=== PATIENT | female | born 1950 | race Caucasian/White ===

== ENCOUNTER 2018-01-10 17:32 | Inpatient (IN) | payer OTHER ==
--- OUTSIDE RECORDS SUMMARY | 2018-01-10 17:34 | XMS REPORT | Clinical Summary ---
:1950 Author Organization [facility] Address [address] [place] [address] Care Team Providers Name Role Phone Eulogio Hastings MD Primary Care Provider Allergies Active Allergy Reactions Severity Noted Date Comments Amlodipine Anaphylaxis High 08/14/2017 Yellow Dye Itching 08/14/2017 FACIAL Current Medications Prescription Sig. Disp. Refills Start Date End Date Status insulin detemir Inject 16 Units Active (LEVEMIR) 100 unit/mL under the skin 2 injection (two) times a day. sevelamer (RENVELA) Take 800 mg by Active 800 mg tablet mouth 3 (three) times a day with meals. pantoprazole Take 40 mg by Active (PROTONIX) 40 MG EC mouth daily. tablet FOLIC ACID/VIT B Take by mouth Active COMPLEX AND C daily. (SUZY-MARIELLE ORAL) gabapentin Take 100 mg by Active (NEURONTIN) 100 mg mouth nightly. capsule traZODone (DESYREL) Take 50 mg by Active 50 MG tablet mouth nightly. acetaminophen-codeine Take 1 tablet by 30 tablet 0 08/14/2017 08/21/2017 (TYLENOL WITH CODEINE mouth every 4 #3) 300-30 mg per (four) hours as tablet needed for moderate pain for up to 7 days. Active Problems Not on file Encounters Date Type Specialty Care Team Description 08/14/2017 Hospital Encounter General Surgery Tika Jett MD 08/14/2017 Anesthesia Event General Surgery Jade Shankar CRNA 08/14/2017 Procedure Pass General Surgery 08/14/2017 Surgery General Surgery Tika Jett LEFT UPPER EXTREMITY BLUM MD FISTULA OPEN THROMBECTOMY, FISTULAGRAM, BALLOON ANGIOPLASTY, INSERTION ENDOVASCULAR STENT TO FISTULA after 01/09/2017 Social History Tobacco Use Types Packs/Day Years Used Date Never Smoker Smokeless Tobacco: Never Used Alcohol Use Drinks/Week oz/Week Comments Yes social Sex Assigned at Date Recorded Not on file Last Filed Vital Signs Vital Sign Reading Time Taken Blood Pressure 136/67 08/14/2017 7:30 PM EPIC ANESTHESIA ANALYST Pulse 79 08/14/2017 7:30 PM EPIC ANESTHESIA ANALYST Temperature 36.1 C (97 F) 08/14/2017 7:30 PM EPIC ANESTHESIA ANALYST Respiratory Rate 11 08/14/2017 7:30 PM EPIC ANESTHESIA ANALYST Oxygen Saturation 99% 08/14/2017 7:30 PM EPIC ANESTHESIA ANALYST Inhaled Oxygen Concentration - - Weight 71.7 kg (158 lb 1.1 oz) 08/14/2017 10:27 AM EPIC ANESTHESIA ANALYST Height 157.5 cm (5' 2") 08/14/2017 10:27 AM EPIC ANESTHESIA ANALYST Body Mass Index 28.91 08/14/2017 10:27 AM EPIC ANESTHESIA ANALYST Plan of Treatment Health Maintenance Due Date Last Done Comments CERVICAL CANCER SCREENING 02/19/1973 BREAST CANCER SCREENING 02/19/2002 COLON CANCER SCREENING 02/19/2002 SHINGRIX VACCINE (#1) 02/19/2002 ZOSTER VACCINE 2012 PNEUMOCOCCAL POLYSACCHARIDE VACCINE AGE 65 AND OVER 02/19/2017 PNEUMOCOCCAL-13 02/19/2017 INFLUENZA VACCINE 02/28/2018 Implants Implanted Type Area Fine Grade Bulldozer Operator Device Expiration Model / Identifier Date Serial / Lot Catheter Emboltmy Fgrty Otw Thru-Lmn 0.035in 5.5fr 40cm - [id number] Surgical N/A: N/A VALENTIN 09/07/2019 [id number] / Implanted: 08/14/2017 (Quantity not on file) Implants; LIFESCIENCES / Expanders; [id number] Extenders; Surgical Wires Catheter In Tube Conversion Technician Solway 75cm 8x80mm H-Pres - [id number] Surgical N/A: N/A BOSTON 05/29/2020 [id number] / Implanted: 08/14/2017 (Quantity not on file) Implants; SCIENTIFIC ROBER / Expanders; [id number] Extenders; Surgical Wires Stent Endprths Viabahn [id number] 8mm Heprn Bioactv Surf - [id number] - [id number] Surgical Left: W L GORE 01/12/2020 [id number] / Implanted: Qty: 1 on 08/14/2017 by Tika Jett MD Stents Arm, [id number] / Upper [id number] Stent Endprths Viabahn [id number] 8mm Heprn Bioactv Surf - [id number] Surgical Left: W L GORE 12/08/2019 [id number] / Implanted: 08/14/2017 (Quantity not on file) Stents Arm, [id number] / Upper [id number] Procedures Procedure Name Priority Date/Time Associated Diagnosis Comments NJ AN PERIPHERAL BLOCK Routine 08/14/2017 5:37 PM PROCEDURE FOR PAIN EPIC ANESTHESIA ANALYST Procedure Note - Gal Palacios MD - 08/14/2017 5:36 PM EPIC ANESTHESIA ANALYST Peripheral Block Performed by: GAL PALACIOS Authorized by: GAL PALACIOS Patient Location: Pre-op Start Time: 08/14/2017 5:15 PM End Time: 08/14/2017 5:25 PM Reason for Block: post-op pain management, procedure for pain Staff: Anesthesiologist: GAL PALACIOS Performed by: Anesthesiologist Preprocedure: patient identified, IV checked, site and side verified, risks and benefits discussed, procedure verified, surgical consent complete, patient position confirmed, monitors and equipment checked, pre-op evaluation complete and site marked Time Out Performed: 08/14/2017 5:15 PM Peripheral Nerve Block: Patient Position: Supine Prep: patient draped and DuraPrep Monitoring: Continuous pulse oximetry, blood pressure monitoring and heart rate Block Type: Supraclavicular Laterality: Left Injection Technique: Single injection Procedures: ultrasound guided Local Infiltration (See MAR for details): Ropivacaine Needle: Needle Type: Pajunk Needle Gauge: 21 G Needle Length: 10 cm Assessment: Injection Assessment: Visualized needle/local anesthetic surrounding nerve , intermittent aspiration during local anesthetic administration, no symptoms of intraneural/intravenous injection, visualized pertinent vascular structures and nerves and needle tip visualized at all times during injection of medication Paresthesia Pain: Immediately resolved Heart Rate Change: No Slow Fractionated Injection: Yes Block outcome: No apparent complications, patient comfortable and patient tolerated procedure well NJ AN PERIPHERAL BLOCK POST-OP PAIN Routine 08/14/2017 5:37 PM EPIC ANESTHESIA ANALYST Procedure Note - Gal Palacios MD - 08/14/2017 5:36 PM EPIC ANESTHESIA ANALYST Peripheral Block Performed by: GAL PALACIOS Authorized by: GAL PALACIOS Patient Location: Pre-op Start Time: 08/14/2017 5:15 PM End Time: 08/14/2017 5:25 PM Reason for Block: post-op pain management, procedure for pain Staff: Anesthesiologist: GAL PALACIOS Performed by: Anesthesiologist Preprocedure: patient identified, IV checked, site and side verified, risks and benefits discussed, procedure verified, surgical consent complete, patient position confirmed, monitors and equipment checked, pre-op evaluation complete and site marked Time Out Performed: 08/14/2017 5:15 PM Peripheral Nerve Block: Patient Position: Supine Prep: patient draped and DuraPrep Monitoring: Continuous pulse oximetry, blood pressure monitoring and heart rate Block Type: Supraclavicular Laterality: Left Injection Technique: Single injection Procedures: ultrasound guided Local Infiltration (See MAR for details): Ropivacaine Needle: Needle Type: Pajunk Needle Gauge: 21 G Needle Length: 10 cm Assessment: Injection Assessment: Visualized needle/local anesthetic surrounding nerve , intermittent aspiration during local anesthetic administration, no symptoms of intraneural/intravenous injection, visualized pertinent vascular structures and nerves and needle tip visualized at all times during injection of medication Paresthesia Pain: Immediately resolved Heart Rate Change: No Slow Fractionated Injection: Yes Block outcome: No apparent complications, patient comfortable and patient tolerated procedure well after 01/09/2017 Results POC glucose (08/14/2017 7:11 PM)Only the most recent of2 resultswithin the time period is included. Component Value Ref Range POC glucose 88 65 - 99 mg/dL Comment: Meter ID: [id number] Blood Tester Fowl: Elder Stapleton Specimen Performing Laboratory [facility] DEPARTMENT OF PATHOLOGY AND GENOMIC MEDICINE [address] [place] [address] OR [place] > I Hour (08/14/2017 7:09 PM) Specimen Performing Laboratory [facility] [address] [place] [address] Narrative EXAMINATION:OR FL 1 HOUR COMPARISON:None IMPRESSION: Fluoroscopy assisted procedure was performed by the clinical service, and 5 fluoroscopic spot images are acquired. Total fluoroscopy time was 346 seconds. Please see procedural report for details. [facility]-[id number] Procedure Note Interface, Radiology Results Incoming - 08/14/2017 7:37 PM EPIC ANESTHESIA ANALYST EXAMINATION: OR FL 1 HOUR COMPARISON: None IMPRESSION: Fluoroscopy assisted procedure was performed by the clinical service, and 5 fluoroscopic spot images are acquired. Total fluoroscopy time was 346 seconds. Please see procedural report for details. [facility]-[id number] POC panel 4 (08/14/2017 10:47 AM) Component Value Ref Range POC sodium 141 135 - 148 meq/L POC potassium 4.6 3.5 - 5.0 meq/L POC hematocrit 38 37 - 47 % POC glucose 111 (H) 65 - 99 mg/dL POC hemoglobin 12.9 12.0 - 16.0 g/dL Specimen Performing Laboratory Blood [facility] DEPARTMENT OF PATHOLOGY AND GENOMIC MEDICINE [address] [place] [address] ECG 12 lead (08/14/2017 10:24 AM) Component Value Ref Range Ventricular rate 80 Atrial rate 80 NJ interval 216 QRSD interval 82 QT interval 400 QTC interval 461 P axis 1 59 QRS axis 1 53 T wave axis 64 EKG impression Sinus rhythm with 1st degree AV block-Otherwise normal ECG-No previous ECGs available- Specimen Performing Laboratory [facility] MUSE [address] [place] [address] XR Chest 1 Vw Portable (08/14/2017 10:17 AM) Specimen Performing Laboratory [facility] [address] [place] [address] Narrative EXAMINATION:XR CHEST 1 VW PORTABLE CLINICAL HISTORY:pre op COMPARISON:None. IMPRESSION: Heart is slightly enlarged Scarring in the left upper lobe Support lines are good position No evidence of pneumothorax Degenerative changes are present throughout the bony structures without evidence of a suspicious focal lesion. [facility]-[id number] Procedure Note Interface, Radiology Results Incoming - 08/14/2017 10:23 AM EPIC ANESTHESIA ANALYST EXAMINATION: XR CHEST 1 VW PORTABLE CLINICAL HISTORY: pre op COMPARISON: None. IMPRESSION: Heart is slightly enlarged Scarring in the left upper lobe Support lines are good position No evidence of pneumothorax Degenerative changes are present throughout the bony structures without evidence of a suspicious focal lesion. [facility]-[id number] Estimated GFR (08/14/2017 9:58 AM) Component Value Ref Range GFR Non Af Amer 5 (A) mL/min/1.73 m2 GFR Af Amer 6 (A) mL/min/1.73 m2 Comment: Chronic kidney disease: <60 mL/min/1.73m2 Kidney failure: <15 mL/min/1.73m2 The estimated GFR is calculated from the IDMS-traceable Modification of Diet in Renal Disease Equation. The accuracy of the calculation is poor when the creatinine is normal. Calculated values >90 mL/min/1.73m2 are not reported. This equation has not been validated in children (<18 years), women, the elderly (>70 years), or ethnic groups other than Caucasians and Americans. Specimen Performing Laboratory Plasma specimen [facility] DEPARTMENT OF PATHOLOGY AND [address] [address] Partial thromboplastin time, activated (08/14/2017 9:58 AM) Component Value Ref Range PTT 33.4 23.0 - 36.0 sec Comment: PTT therapeutic range for unfractionated heparin is 61.0-112.0 seconds which corresponds to Anti-Xa 0.3-0.7 U/ml. Specimen Performing Laboratory Blood [facility] [address] [address] Prothrombin time with INR (08/14/2017 9:58 AM) Component Value Ref Range Prothrombin time 12.9 12.0 - 15.0 sec INR 1.0 Comment: The International Normalized Ratio (INR) is a therapeutic monitoring tool for patients who are stable on oral anticoagulant therapy. An INR of 2.0-3.0 is suggested for deep vein thrombosis/pulmonary embolism. Specimen Performing Laboratory Blood [facility] PATHOLOGY AND [address] [address] CBC hemogram (08/14/2017 9:58 AM) Component Value Ref Range WBC 9.7 4.5 - 11.0 k/uL RBC 3.42 (L) 4.20 - 5.50 m/uL HGB 11.8 (L) 12.0 - 16.0 g/dL HCT 34.4 (L) 37.0 - 47.0 % MCV 100.6 (H) 82.0 - 100.0 fL MCH 34.5 (H) 27.0 - 34.0 pg MCHC 34.3 31.0 - 37.0 g/dL RDW - SD 47.8 37.0 - 55.0 fL MPV 11.8 (H) 6.9 - 11.0 fL Platelet count 235 150 - 400 K/uL Nucleated RBC 0.00 /100 WBC Specimen Performing Laboratory Blood [facility] DEPARTMENT OF PATHOLOGY AND GENOMIC MEDICINE [address] [place] [address] Type and screen (08/14/2017 9:58 AM) Component Value Ref Range ABO grouping O Rh type POS Antibody screen (gel) NEG Specimen Performing Laboratory Blood [facility] DEPARTMENT OF PATHOLOGY AND GENOMIC MEDICINE [address] [place] [address] Basic metabolic panel (08/14/2017 9:58 AM) Component Value Ref Range Sodium 141 135 - 148 mEq/L Potassium 4.8Comment: Specimen is slightly hemolyzed. Interpret 3.5 - 5.0 mEq/L results accordingly. Chloride 98 98 - 112 mEq/L CO2 24 24 - 31 mEq/L Anion gap 19 (H) 7 - 15 mEq/L Comment: Starting from October , anion gap calculation no longer incorporates potassium. Please note the change. BUN 40 (H) 8 - 23 mg/dL Creatinine 7.6 (H) 0.5 - 0.9 mg/dL Glucose 116 (H) 65 - 99 mg/dL Calcium 10.5 (H) 8.8 - 10.2 mg/dL Specimen Performing Laboratory Plasma specimen [facility] DEPARTMENT OF PATHOLOGY AND GENOMIC MEDICINE [address] [place] [address] after 01/09/2017 Insurance Payer Benefit Plan / Group Subscriber ID Type Phone Address MEDICARE MEDICARE PART A AND B xxxxxxxxxx Medicare [facility] xxxxxxxxxx Commercial INSURANCE INSURANCE Home: [address] [phone] [address]
[2018-01-10 19:40] LABS: Absolute Lymphocytes (CBC) 1.5 K/uL (0.7-4.9); Absolute Monocytes 0.7 K/uL (0.1-1.3); Absolute Neutrophil 8.7 K/uL (1.8-8.0); Basophils % 0.5 % (0-1.3); Hematocrit 33.7 % (36.0-45.0); Lymphocytes % 13.3 % (15.3-44.8); MCV 99.5 fL (80-100); MPV 9.7 fL (7.6-11.3); Monocytes % 6.7 % (3.3-12.3); RBC Red Blood Cell Count 3.39 M/uL (3.86-4.86)
[2018-01-10 19:51] LABS: Bicarbonate 29 mEq/L (21-31); Glucose Level 122 mg/dL (65-120); Potassium 4.4 mEq/L (3.6-5.0); Sodium Level 137 mEq/L (135-145)
[2018-01-10 19:59] LABS: ALT/SGPT 13 IU/L (10-60); AST/SGOT 14 IU/L (10-42); Albumin 3.6 g/dL (3.2-5.5); Alkaline Phosphatase 111 IU/L (42-121); BUN Blood Urea Nitrogen 49 mg/dL (6-20); Bilirubin Direct < 0.1 mg/dL (0-0.2); Bilirubin Total 0.4 mg/dL (0.3-1.2); Creatine Phosphokinase 26 IU/L (22-269); Protein, Total 7.6 g/dL (6.0-8.3)
[2018-01-10 20:00] LABS: CKMB Creatine Kinase MB 1.1 ng/ml (0.3-4.0)
--- NOTE | 2018-01-10 20:06 | RAD REPORT ---
EXAM DESCRIPTION: RAD - Foot Right 2 View - 01/10/2018 7:00 pm CLINICAL HISTORY: Foot pain, plantar wound, possible osteomyelitis COMPARISON: None. FINDINGS: No fracture, dislocation or periosteal reaction. No acute or destructive bone process. IP degenerative change is minimal. Arterial calcifications are present. In the area of interest there is no air or foreign body. IMPRESSION: No air or foreign body in the soft tissues. No acute or destructive bone process.
[2018-01-10 20:14] LABS: Protime INR 1.01
--- NOTE | 2018-01-10 20:46 | ER ---
Nurse's Notes [facility] Name: Laurel Ames Age: 67 yrs Sex: Female : 1950 Arrival Date: 01/10/2018 Time: 17:35 Bed 20 Private MD: Eulogio Sandoval R Diagnosis: Open wound of foot-Right;Cellulitis of right lower limb Presentation: 01/10 17:47 Presenting complaint: Patient states: Wound to bottom of right foot for 2 weeks, sent aj by Dr To for admission to wound healing. Transition of care: patient was not received from another setting of care. Onset of symptoms was December 29, 2017. Risk Assessment: Do you want to hurt yourself or someone else? Patient reports no desire to harm self or others. Care prior to arrival: None. 17:47 Method Of Arrival: Ambulatory aj 17:47 Acuity: COMFORT 3 aj 18:58 Initial Sepsis Screen: Does the patient meet any 2 criteria? No. Patient's initial rk2 sepsis screen is negative. Does the patient have a suspected source of infection? Yes: No. Patient's initial sepsis screen is negative. Triage Assessment: 17:50 General: Appears in no apparent distress. comfortable, Behavior is calm, cooperative, aj appropriate for age. Pain: Complains of pain in right foot. Neuro: Level of Consciousness is awake, alert, obeys commands, Oriented to person, place, time, situation, Appropriate for age. Respiratory: Airway is patent Respiratory effort is even, unlabored, Respiratory pattern is regular, symmetrical. Derm: Skin is intact, is healthy with good turgor, Skin is pink, warm \T\ dry. normal, Wound noted right foot. Historical: - Allergies: 17:50 Norvasc; aj 17:50 yellow dye; aj 17:50 Flourisine; aj - Home Meds: 17:50 Levemir FlexTouch 100 unit/mL (3 mL) subcutaneous inpn [Active]; Renvela 800 mg oral aj tab 1 tab 3 times per day [Active]; pantoprazole 40 mg oral TbEC 1 tab once daily [Active]; gabapentin 100 mg oral cap nightly [Active]; trazodone 50 mg Oral tab nightly [Active]; Bactrim oral oral [Active]; - PMHx: 17:50 CHF; Diabetes - IDDM; Dialysis; ESRD; aj - PSHx: 17:50 Tubal ligation; dialyis access surgery; aj - Immunization history:: Adult Immunizations up to date. - Social history:: Smoking status: Patient/guardian denies using tobacco. - Ebola Screening: : Patient negative for fever greater than or equal to 101.5 degrees Fahrenheit, and additional compatible Ebola Virus Disease symptoms Patient denies exposure to infectious person Patient denies travel to an Ebola-affected area in the 21 days before illness onset No symptoms or risks identified at this time. Screenin:30 Abuse screen: Denies threats or abuse. rk2 18:30 Nutritional screening: No deficits noted. Tuberculosis screening: No symptoms or risk rk2 factors identified. Fall Risk None identified. Assessment: 18:30 General: Appears in no apparent distress. well developed, well nourished. rk2 18:30 Neuro: Level of Consciousness is alert, obeys commands, Oriented to person, place, rk2 time, situation. Respiratory: Airway is patent Respiratory effort is even, unlabored, Respiratory pattern is regular, symmetrical. Derm: Skin is pink, warm \T\ dry. Injury Description: Wound noted to bottom of right foot... no drainage noted. 19:13 Reassessment: Patient appears in no apparent distress at this time. Patient and/or jd3 family updated on plan of care and expected duration. Pain level reassessed. Patient is alert, oriented x 3, equal unlabored respirations, skin warm/dry/pink. Patient denies pain at this time. General: Appears in no apparent distress. Behavior is cooperative, appropriate for age. Pain: Denies pain. Neuro: Level of Consciousness is awake, alert, obeys commands, Oriented to person, place, time, situation. Respiratory: Airway is patent Respiratory effort is even, unlabored, Respiratory pattern is regular, symmetrical, Breath sounds are clear bilaterally. Derm: Skin is intact, Skin is dry, Skin is normal, Skin temperature is warm Wound noted ball of right foot Wound is open, silver dollar in size, and clean. Musculoskeletal: Circulation, motion, and sensation intact. Range of motion: intact in all extremities. 20:58 Reassessment: Patient appears in no apparent distress at this time. Patient and/or jd3 family updated on plan of care and expected duration. Pain level reassessed. Patient is alert, oriented x 3, equal unlabored respirations, skin warm/dry/pink. Patient denies pain at this time. 22:18 Reassessment: Patient appears in no apparent distress at this time. Patient and/or jd3 family updated on plan of care and expected duration. Pain level reassessed. Patient is alert, oriented x 3, equal unlabored respirations, skin warm/dry/pink. pt reported understanding of need for admission. Patient denies pain at this time. Vital Signs: 17:50 BP 127 / 45; Pulse 99; Resp 17; Temp 98.1; Pulse Ox 96% on R/A; Weight 71.4 kg; Height aj 5 ft. 2 in. (157.48 cm) (R); 19:16 BP 163 / 72; Pulse 88; Resp 16 S; Pulse Ox 98% on R/A; Pain 0/10; jd3 20:56 Pulse 87; Resp 17 S; Pulse Ox 98% on R/A; Pain 0/10; jd3 22:17 BP 142 / 97; Pulse 86; Resp 17 S; Pulse Ox 99% on R/A; Pain 0/10; jd3 17:50 Body Mass Index 28.79 (71.40 kg, 157.48 cm) aj ED Course: 17:35 Patient arrived in ED. mr 17:35 Eulogio Sandoval MD is Private Physician. mr 17:48 Triage completed. aj 17:50 Arm band placed on left wrist. Patient placed in an exam room. aj 17:53 Elizabeth Pedersen, RN is Primary Nurse. rk2 18:01 Chirag Stafford PA is PHCP. cp 18:01 Selwyn Gallego MD is Attending Physician. cp 18:02 Chirag Hinds MD is Attending Physician. cp 18:30 Patient has correct armband on for positive identification. Bed in low position. Call rk2 light in reach. 18:53 XRAY Foot RIGHT 2 View Sent. rk2 18:59 X-ray completed. Portable x-ray completed in exam room. Patient tolerated procedure bb2 well. 19:00 XRAY Foot RIGHT 2 View In Process Unspecified. EDMS 19:20 Initial lab(s) drawn, by me, sent to lab. First set of blood cultures drawn by me. cc Inserted saline lock: 22 gauge in right antecubital area, using aseptic technique. Blood collected. 19:42 Gerson Barragan, RN is Primary Nurse. jd3 19:45 Wound culture swab sent to lab. cc 19:59 doppler to rt foot. Pedal pulse present at 85 bpm. cc 20:10 EKG done, by ED staff, reviewed by Chirag WILKES. cc 20:15 Second set of blood cultures drawn by me. cc 20:44 Eulogio Sandoval MD is Hospitalizing Provider. cp 22:21 No provider procedures requiring assistance completed. Patient admitted, IV remains in jd3 place. Administered Medications: 21:16 Drug: LevaQUIN 250 mg Volume: 50 ml; Route: IVPB; Infused Over: 60 mins; Site: right jd3 antecubital; 22:16 Follow up: Response: No adverse reaction; IV Status: Completed infusion jd3 22:15 Drug: vancoMYCIN 1 grams Route: IVPB; Infused Over: 2 hrs; Site: right antecubital; jd3 22:16 Follow up: Response: No adverse reaction; IV Status: Infusion continued upon admission jd3 Outcome: 20:45 Decision to Hospitalize by Provider. cp 22:22 Admitted to Med/surg accompanied by tech, via wheelchair, room 212, with chart, Report jd3 called to Violette SHEPPARD 22:22 Condition: stable 22:22 Instructed on the need for admit, Demonstrated understanding of instructions. 22:33 Patient left the ED. jd3 Signatures: Dispatcher [employer] EDMS Natividad Reynolds RN RN aj Rivera, Maria mr León, Marine cc Chirag Stafford PA PA cp Gerson Barragan RN RN jd3 Bock, Brittany bb2 Kidder, Rhonda, RN RN rk2 Corrections: (The following items were deleted from the chart) 20:18 19:59 doppler to rt foot. Pedal pulse present and equal at 85 bpm cc cc 22:23 22:18 Reassessment: Patient appears in no apparent distress at this time. Patient jd3 and/or family updated on plan of care and expected duration. Pain level reassessed. Patient is alert, oriented x 3, equal unlabored respirations, skin warm/dry/pink. Patient denies pain at this time. jd3
--- NOTE | 2018-01-10 20:46 | EDPHYS ---
Physician Documentation [facility] Name: Laurel Ames Age: 67 yrs Sex: Female : 1950 Arrival Date: 01/10/2018 Time: 17:35 Bed 20 Private MD: Eulogio Sandoval R ED Physician Chirag iHnds HPI: 01/10 18:45 This 67 yrs old Female presents to ER via Ambulatory with complaints of Wound cp Check. 18:45 The patient presents with pressure wound. The complaints affect the plantar surface of cp right foot. 18:45 Context: resulted from an unknown cause, the patient can fully bear weight, started as cp blister that has not healed. Onset: The symptoms/episode began/occurred 2 week(s) ago. Associated signs and symptoms: Pertinent negatives: calf tenderness, fever. Started on oral Bactrim approximately 1 week ago and was seen by podiatry today and referred to ED to be admitted for wound care evaluation. Historical: - Allergies: 17:50 Norvasc; aj 17:50 yellow dye; aj 17:50 Flourisine; aj - Home Meds: 17:50 Levemir FlexTouch 100 unit/mL (3 mL) subcutaneous inpn [Active]; Renvela 800 mg oral aj tab 1 tab 3 times per day [Active]; pantoprazole 40 mg oral TbEC 1 tab once daily [Active]; gabapentin 100 mg oral cap nightly [Active]; trazodone 50 mg Oral tab nightly [Active]; Bactrim oral oral [Active]; - PMHx: 17:50 CHF; Diabetes - IDDM; Dialysis; ESRD; aj - PSHx: 17:50 Tubal ligation; dialyis access surgery; aj - Immunization history:: Adult Immunizations up to date. - Social history:: Smoking status: Patient/guardian denies using tobacco. - Ebola Screening: : Patient negative for fever greater than or equal to 101.5 degrees Fahrenheit, and additional compatible Ebola Virus Disease symptoms Patient denies exposure to infectious person Patient denies travel to an Ebola-affected area in the 21 days before illness onset No symptoms or risks identified at this time. ROS: 18:50 Constitutional: Negative for body aches, chills, fever, poor PO intake. cp 18:50 Eyes: Negative for injury, pain, redness, and discharge. cp 18:50 ENT: Negative for drainage from ear(s), ear pain, sore throat, difficulty swallowing, difficulty handling secretions. 18:50 Cardiovascular: Negative for chest pain, edema. 18:50 Respiratory: Negative for cough, shortness of breath, wheezing. 18:50 Abdomen/GI: Negative for abdominal pain, nausea, vomiting, and diarrhea, black/tarry stool, rectal bleeding. 18:50 Back: Negative for pain at rest, pain with movement, radiated pain. 18:50 : Negative for urinary symptoms. 18:50 Skin: Positive for cellulitis, ulceration, of the plantar surface of right foot. 18:50 Neuro: Negative for altered mental status, headache, weakness. 18:50 All other systems are negative. Exam: 18:58 Constitutional: The patient appears in no acute distress, alert, awake, non-toxic, well cp developed, well nourished, frail. 18:58 Head/Face: Normocephalic, atraumatic. cp 18:58 Eyes: Periorbital structures: appear normal, Pupils: equal, round, and reactive to light and accomodation, Extraocular movements: intact throughout, Conjunctiva: normal, no exudate, no injection, Sclera: no appreciated abnormality, Lids and lashes: appear normal, bilaterally. 18:58 ENT: External ear(s): are unremarkable, Ear canal(s): are normal, clear, TM's: bulging, is not appreciated, bilaterally, dullness, bilaterally, erythema, is not appreciated, bilaterally, Nose: is normal, Mouth: Lips: moist, Oral mucosa: moist, Posterior pharynx: is normal, airway is patent, no erythema, no exudate, Voice: is normal. 18:58 Neck: ROM/movement: is normal, is supple, without pain, no range of motions limitations, no nuchal rigidity. 18:58 Chest/axilla: Inspection: normal, Palpation: is normal, no crepitus, no tenderness. 18:58 Cardiovascular: Rate: normal, Rhythm: regular, Edema: is not appreciated, JVD: is not appreciated. 18:58 Respiratory: the patient does not display signs of respiratory distress, Respirations: normal, no use of accessory muscles, no retractions, no splinting, no tachypnea, labored breathing, is not present, Breath sounds: decreased breath sounds, are not appreciated, wheezing: is not appreciated. 18:58 Abdomen/GI: Inspection: abdomen appears normal, Bowel sounds: active, all quadrants, Palpation: abdomen is soft and non-tender, in all quadrants, rebound tenderness, is not appreciated, voluntary guarding, is not appreciated, involuntary guarding, is not appreciated. 18:58 Back: pain, is absent, ROM is normal. 18:58 Musculoskeletal/extremity: Exam is negative for deformity, injury, Pulses: noted to be 1+ in the right dorsalis pedis artery and left dorsalis pedis artery, decreased sensation. 18:58 Skin: cellulitis, that is moderate, irregular, on the right foot, noted large plantar pressure ulcer ball right foot. 20:15 ECG was reviewed by the Attending Physician. cp Vital Signs: 17:50 BP 127 / 45; Pulse 99; Resp 17; Temp 98.1; Pulse Ox 96% on R/A; Weight 71.4 kg; Height aj 5 ft. 2 in. (157.48 cm) (R); 19:16 BP 163 / 72; Pulse 88; Resp 16 S; Pulse Ox 98% on R/A; Pain 0/10; jd3 20:56 Pulse 87; Resp 17 S; Pulse Ox 98% on R/A; Pain 0/10; jd3 22:17 BP 142 / 97; Pulse 86; Resp 17 S; Pulse Ox 99% on R/A; Pain 0/10; jd3 17:50 Body Mass Index 28.79 (71.40 kg, 157.48 cm) aj MDM: 18:01 Patient medically screened. cp 20:13 Data reviewed: vital signs, nurses notes, lab test result(s), EKG, radiologic studies, cp plain films. 20:13 Differential diagnosis: cellulitis, abscess, osteomyelitis, sepsis. Test cp interpretation: by ED physician or midlevel provider: ECG, plain radiologic studies. 20:15 Physician consultation: Jude Julian MD was called at 20:15, left message with cp on-call service. 20:29 Physician consultation: Jude Julian MD was contacted at 20:29, regarding consult, cp patient's condition, wants patient to be given Vancomycin 1 gram and Levaquin 250 mg. 20:40 Physician consultation: Eulogio Sandoval MD was called at 20:41, was contacted at 20:41, cp regarding admission, to the medical/surgical unit. 06 18:42 Order name: Basic Metabolic Panel; Complete Time: 20:10 06/13 20:11 Interpretation: Normal except: CL 97; GLUC 122; BUN 49; CRE 7.07; GFR 6. cp / 18:42 Order name: Blood Culture Adult (2) cp 06/ 18:42 Order name: C-Reactive Protein; Complete Time: 20:10 cp / 18:42 Order name: CBC with Diff; Complete Time: 20:49 cp 06/13 20:49 Interpretation: Normal except: WBC 11.1; RBC 3.39; HGB 11.2; HCT 33.7. cp 06/ 18:42 Order name: Ckmb; Complete Time: 20:10 cp / 18:42 Order name: CPK; Complete Time: 20:10 / 18:42 Order name: Lactate; Complete Time: 20:10 / 18:42 Order name: LFT's; Complete Time: 20:10 01/10 18:42 Order name: Procalcitonin; Complete Time: 20:28 cp /13 20:29 Interpretation: Procalcitonin 2.01; Reviewed. cp 06/ 18:42 Order name: Protime (+inr); Complete Time: 20:49 cp / 18:42 Order name: Ptt, Activated; Complete Time: 20:49 / 18:42 Order name: Sed Rate; Complete Time: 20:49 / 18:42 Order name: Wound Culture 01/10 21:20 Order name: Basic Metabolic Panel EDMS 01/10 18:42 Order name: Accucheck; Complete Time: 21:17 cp / 18:42 Order name: Cardiac monitoring; Complete Time: 19:43 cp / 18:42 Order name: EKG - Nurse/Tech; Complete Time: 19:56 cp / 18:42 Order name: IV Saline Lock - Large Bore; Complete Time: 19:43 cp 01/10 18:42 Order name: Labs collected and sent; Complete Time: 19:43 cp / 18:42 Order name: O2 Per Protocol; Complete Time: 19:43 cp / 18:42 Order name: O2 Sat Monitoring; Complete Time: 19:43 01/10 18:42 Order name: XRAY Foot RIGHT 2 View; Complete Time: 20:10 01/10 20:11 Interpretation: Report reviewed. 01/10 21:21 Order name: CONS Physician Consult EDMN 01/10 21:21 Order name: Consistent Carb (ADA) 1800 Toan EDMS 01/10 21:21 Order name: Basic Metabolic Panel EDMN 01/10 21:21 Order name: CBC with Automated Diff EDMS 01/10 21:21 Order name: CBC with Automated Diff EDMS EC:15 Rate is 88 beats/min. Rhythm is regular. TX interval is prolonged at 228 msec. QRS cp interval is normal. QT interval is normal. T waves are Normal. No ST changes noted. Interpreted by me. Reviewed by me. Administered Medications: 21:16 Drug: LevaQUIN 250 mg Volume: 50 ml; Route: IVPB; Infused Over: 60 mins; Site: right jd3 antecubital; 22:16 Follow up: Response: No adverse reaction; IV Status: Completed infusion j 22:15 Drug: vancoMYCIN 1 grams Route: IVPB; Infused Over: 2 hrs; Site: right antecubital; jd3 22:16 Follow up: Response: No adverse reaction; IV Status: Infusion continued upon admission jd3 Disposition: 01/11 07:29 Co-signature as Attending Physician, Chirag Hinds MD I agree with the assessment and [facility] plan of care. Disposition: 01/10/18 20:45 Hospitalization ordered by Eulogio Sandoval for Inpatient Admission. Preliminary diagnosis are Open wound of foot - Right, Cellulitis of right lower limb. - Bed requested for Telemetry/MedSurg (Inpatient). - Status is Inpatient Admission. jd3 - Condition is Stable. - Problem is new. - Symptoms have improved. UTI on Admission? No Signatures: Dispatcher [employer] EDMN Carla Armenta RN RN kl Myers, Amanda, RN RN aj Anderson, Corey, MD MD cha Page, Corey, PA PA cp Davies, Jonathon, RN RN jd3 Corrections: (The following items were deleted from the chart) 01/10 21:28 20:45 Hospitalization Ordered by Eulogio Sandoval MD for Inpatient Admission. Preliminary diagnosis is Open wound of foot - Right. Bed requested for Telemetry/MedSurg (Inpatient). Status is Inpatient Admission. Condition is Stable. Problem is new. Symptoms have improved. UTI on Admission? No. cp 21:34 21:28 01/10/2018 20:45 Hospitalization Ordered by Eulogio Sandoval MD for Inpatient cp Admission. Preliminary diagnosis is Open wound of foot - Right. Bed requested for Telemetry/MedSurg (Inpatient). Status is Inpatient Admission. Condition is Stable. Problem is new. Symptoms have improved. UTI on Admission? No. kl 21:41 21:34 01/10/2018 20:45 Hospitalization Ordered by Eulogio Sandoval MD for Inpatient kl Admission. Preliminary diagnosis is Open wound of foot - Right; Cellulitis of right lower limb. Bed requested for Telemetry/MedSurg (Inpatient). Status is Inpatient Admission. Condition is Stable. Problem is new. Symptoms have improved. UTI on Admission? No. cp 22:33 21:41 01/10/2018 20:45 Hospitalization Ordered by Eulogio Sandoval MD for Inpatient jd3 Admission. Preliminary diagnosis is Open wound of foot - Right; Cellulitis of right lower limb. Bed requested for Telemetry/MedSurg (Inpatient). Status is Inpatient Admission. Condition is Stable. Problem is new. Symptoms have improved. UTI on Admission? No. kl
[2018-01-10] MEDS ORDERED: Levofloxacin500mg IV 500 MG/100 ML BAG IV ONE (21:05)
[2018-01-10] MEDS ORDERED: VANCOMYCIN 1 GM/250 ML BAG ONE (21:06)
[2018-01-10] MEDS ORDERED: ONDANSETRON 4 MG/2 ML VIAL IV PRN (21:19)
[2018-01-10] MEDS ORDERED: HYDROCODONE/APAP 5/325 MG TAB PO PRN (21:19)
[2018-01-10] MEDS ORDERED: Pharmacy Consult 1 EA XX PRN (22:44)
[2018-01-10] MEDS ORDERED: Levofloxacin 250mg IV 250 MG/50 ML BAG IV SCH (23:00)
[2018-01-11 05:48] LABS: Absolute Lymphocytes (CBC) 1.5 K/uL (0.7-4.9); Absolute Monocytes 0.9 K/uL (0.1-1.3); Absolute Neutrophil 6.6 K/uL (1.8-8.0); Basophils % 0.8 % (0-1.3); Eosinophils % 1.4 % (0-4.4); Lymphocytes % 16.1 % (15.3-44.8); MCH 33.9 pg (27.0-35.0); MCV 98.8 fL (80-100); Monocytes % 10.2 % (3.3-12.3); RBC Red Blood Cell Count 3.14 M/uL (3.86-4.86)
[2018-01-11 06:19] LABS: Potassium 4.1 mEq/L (3.6-5.0)
[2018-01-11] MEDS: SEVELAMER CARBONATE 800 MG TABLET PO SCH ×3 (08:08→18:33)
[2018-01-11] MEDS: NIFEDIPINE XL 30 MG TABLET PO SCH (08:08)
[2018-01-11] MEDS: PANTOPRAZOLE 40MG TABLET PO SCH (08:08)
[2018-01-11] MEDS: INSULIN DETEMIR 100 UNIT/1 ML INSULIN SQ SCH ×2 (08:10→21:27)
[2018-01-11] MEDS: ENOXAPARIN 30 MG/0.3 ML SQ SCH (08:10)
--- NOTE | 2018-01-11 11:33 | EKG ---
Test Date: 2018-01-10 Test Time: 20:09:10 Printing Grey Cloth Tender: PRINCESS MEASUREMENT RESULTS: Intervals: Rate: 88 ME: 228 QRSD: 92 QT: 390 QTc: 471 [place]: P: 82 ME: 228 QRS: 10 T: 48 INTERPRETIVE STATEMENTS: Sinus rhythm with 1st degree AV block with premature supraventricular complexes Otherwise normal ECG Compared to ECG 09/12/2017 14:31:14 Atrial premature complex(es) now present First degree AV block now present Prolonged QT interval no longer present Electronically Signed On 01-11-18 11:32:16 CDT by Sammy Young
[2018-01-11] MEDS: MULTIVITAMINS,THERAPEUT 1 TAB PO SCH (11:53)
[2018-01-11] MEDS ORDERED: EPOETIN ALFA 10,000 UNIT/ML VIAL IV SCH (12:45)
[2018-01-11] MEDS: Levofloxacin 250mg IV 250 MG/50 ML BAG IV SCH (13:36)
--- NOTE | 2018-01-11 14:41 | CON ---
Date of Consultation: 01/11/2018 Additional Consulting Physician: Eulogio Hastings MD Reason For Consultation: Elevated BUN and creatinine, hypertension, electrolyte imbalance. 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 Apparently, she walked to pick up attendant the mail ba re feet and had ulceration with burning on the sole of her right foot. For that reason, we started h er on Bactrim. As outpatient, the patient visits with Podiatry and advised her to be admitted to the hospital for further evaluation. The patient denied any fever, any chills. No nausea. No vomiting . Past Medical History: Includes: 1.Diabetes complicated with neuropathy, nephropathy, and retinopathy. 2.Hypertension. 3.End-stage renal disease, on hemodialysis, TTS at [facility] through left arm A V fistula. 4.CHF. Past Surgical History: Includes: 1.AV fistula. 2.Tubal ligation. Family History: Positive for hypertension and diabetes. Social History: Lives with mother. Denies smoking. Denies drinking. Denies drug abuse. Review of Systems: Head and Neck: No red eye. No ear pain. Legally blind. GI: No nausea. No vomiting. : No polyuria. No dysuria. No hematuria. BOARD HANDLER: No vaginal discharge. Respiratory: No shortness of breath. Cardiovascular: No chest pain. Neuro: Has neuropathy. Legally blind. Musculoskeletal: No joint pain. Endocrine: No polydipsia. Skin: No rash. Medications: Home medications include nifedipine 1 tablet daily, Renvela 2 tablets 3 times a day, Pa ntoprazole, folic acid, trazodone, and gabapentin. Current medications include Neurontin, levofloxac in 250, nifedipine, pantoprazole, trazodone, vancomycin, B complex. Physical Examination: General: When I saw the patient, the patient is sitting in bed. Vital Signs: Blood pressure 147/68, pulse of 93, afebrile. Chest: Clear to auscultation. Heart: S1, S2. Regular. Abdomen: Soft, nontender. Extremities: No edema. Ulceration, stage I on the sole of the right feet, 2 x 2, with erythema arou nd it, clean base. Neuro: Alert and oriented. Nonfocal. Legally blind. Laboratory Data: WBC 9.3, H and H 10.6/31, platelets of 174. Sodium 139, potassium 4.1, bicarb 24, BUN 54, creatinine 7.7, calcium 8.9. Current Medications: The patient on include: 1.Levaquin 250. 2.Vanco. 3.Nifedipine 30. 4.Gabapentin. 5.Trazodone. 6.Renvela 800 with each meal. 7.Zofran. Assessment And Plan: 1.End-stage renal disease, normal volume. We are going to maintain the patient on dialysis, TTS. 2.Secondary hyperparathyroidism. I am going to go ahead and increase her Renvela to 2 tablets with each meal. 3.Anemia of chronic kidney disease. Resume Epogen. 4.Foot infection. Follow up with Podiatry. I agree with current antibiotic. We will follow up lev el. I am going to adjust her Levaquin to be every 24 hours of 250. We will follow up vanc level. 5.Diabetes as by primary. Case discussed with the patient and mother, verbalized understanding. CHAPITO Voice ID: [id number] Report ID: [id number]
[2018-01-11] MEDS ORDERED: TRAZODONE 150 MG TAB PO SCH (21:00)
[2018-01-11] MEDS: GABAPENTIN 100 MG CAP PO SCH (21:28)
[2018-01-11] MEDS: TRAZODONE 50 MG TABLET PO SCH (21:28)
--- NOTE | 2018-01-11 22:38 | CON ---
Date of Consultation: 01/11/2018 Reason For Services: Right foot cellulitis, infected diabetic ulcer. History Of Present Illness: This is a case of a 67-year-old patient, who comes to us with a history of renal failure, also with a nonhealing wound over the plantar surface of the foot. She has been ta nunu care of by the forensic chemist. Recently, they have been doing some debridement, but in the last few days, she noticed the area to be worse with thick fibrin present in that area and necrotic tissue. S he came to the ER, was admitted and a surgical consult was obtained. The patient does not seem to re member if she has diabetic shoes or not, although she was advised in the past. She does not remember much of a history. She is a nice lady, right now receiving dialysis and hard to remember all the de tails as per patient. Past Medical History: Congestive heart failure, diabetes, and end-stage renal disease. Past Surgical History: Include tubal ligation and dialysis access. Social History: She does not smoke. She does not drink alcohol. Allergies: NORVASC AND FLUROSYN. Medications: Reviewed. Review of Systems: Unable to be obtained. Family History: Heart disease. Physical Examination: General: The patient is awake and alert. HEENT: Pupils are anicteric. Neck: Supple. Abdomen: Soft and depressible. No guarding or rebound. Extremities: Dorsalis pedis bilaterally ar e diminish. No cyanosis, but on the right foot area, the patient has a plantar surface ulcer about 7 x 8 cm in size. There are fibrin and devitalized tissue tissue present. Cellulitis present. No cy anosis. Imaging Data: Right foot x-ray done 01/10/2018 shows no air or foreign body. Laboratory Data: Blood work shows WBC count of 11.1 with platelets of 212 and creatinine is 7.73. Assessment: A 67-year-old patient with infected diabetic ulcer of right foot. From a surgical stand point, we are going to the surgical debridement since she has no sensation most likely at bedside. T he benefits, alternative, and risks of debridement fully explained to the patient, which include, but are not limited to infection, bleeding, damage to adjacent structures, anesthesia complication, nonh ealing wound, ME, and even . She also understands this may not relieve any symptoms. She might need more than one surgical intervention. She was explained the importance of wound care and diabet es control. She was counseled about the use of diabetic shoes and asked to find a vascular center to study peripheral vascular disease. TANMAY/BEATRIZ Voice ID: [id number] Report ID: [id number]
[2018-01-12] MEDS: SEVELAMER CARBONATE 800 MG TABLET PO SCH ×4 (07:37→16:41)
[2018-01-12] MEDS: INSULIN DETEMIR 100 UNIT/1 ML INSULIN SQ SCH ×2 (09:00→21:17)
[2018-01-12] MEDS: ENOXAPARIN 30 MG/0.3 ML SQ SCH (09:00)
[2018-01-12] MEDS: PANTOPRAZOLE 40MG TABLET PO SCH (09:00)
[2018-01-12] MEDS: NIFEDIPINE XL 30 MG TABLET PO SCH ×2 (09:00→16:41)
--- NOTE | 2018-01-12 09:15 | HP ---
Date of Admission: 01/10/2018 Chief Complaint: Pain, redness, foot. History Of Present Illness: A 67-year-old female who had a diabetic foot infection and was seeing Dr Ketan To. However, because of continued redness, the patient is admitted through emergency room for I V antibiotic therapy and closer followup. The patient denied any recent trauma. Past Medical History: Type 2 diabetes requiring insulin with complications of nephropathy with end-s tage renal disease, retinopathy, and neuropathy. Other problems include hypertension and history of congestive heart failure. Past Surgical History: Positive for tubal ligation and AV fistula. Family History: Positive for diabetes and hypertension. Social History: Nonsmoker. Home Medicines: Please refer to the chart. Review of Systems: No history of fever, chills, or rigors. Physical Examination: General: Revealed 67-year-old, legally blind. HEENT: Negative. Neck: Supple. JVD negative. Chest: Clear. Heart: Regular. Abdomen: Soft. Extremities: The right foot shows diffuse area of eschar formation and surrounding redness. Laboratory Data: White count 9.3, hemoglobin 10.6, creatinine 7.7. Assessment: 1.Infection, right foot, not responding to oral antibiotic and outpatient management. 2.Type 2 diabetes requiring insulin. 3.End-stage renal disease. 4.Diabetic retinopathy with legal blindness. 5.Diabetic neuropathy. Plan: The patient is on IV vancomycin and Levaquin. The patient is being followed by Dr. Sebastián Julian. The patient will be restarted on insulin. RRK/MODL Voice ID: [id number]
[2018-01-12 10:27] LABS: Potassium 4.3 mEq/L (3.6-5.0)
[2018-01-12] MEDS: MULTIVITAMINS,THERAPEUT 1 TAB PO SCH (11:56)
[2018-01-12] MEDS: Levofloxacin 250mg IV 250 MG/50 ML BAG IV SCH (14:25)
[2018-01-12] MEDS: TRAZODONE 50 MG TABLET PO SCH (21:18)
[2018-01-12] MEDS: GABAPENTIN 100 MG CAP PO SCH (21:18)
[2018-01-12] MEDS ORDERED: Levofloxacin 250mg IV 250 MG/50 ML BAG IV SCH (23:00)
--- NOTE | 2018-01-13 01:30 | PN ---
Date of Progress Note: 01/12/2018 Chief Complaint: End-stage renal disease, on dialysis 3 times per week. History Of Present Illness: The patient presented to the hospital because of nonhealing lower extremity wound. She was consulted by [facility] psychiatrist and she was to have debridement of the foot. Past Medical History: The patient has multiple medical problems including history of diabetes mellitus with neuropathy, nephropathy, and retinopathy, hypertension, and congestive heart failure. Review of Systems: Denies fever, chills. Physical Examination: Lungs: Clear to auscultation bilaterally. Heart: S1, S2. Abdomen: Soft, benign, nontender. Extremities: Dressing in place. Laboratory Data: Hemoglobin 10.6, WBC 9.3, platelet count is 174,000. Chemistries showed sodium 140, potassium 4.3, chloride 101, CO2 30, BUN 38, creatinine 6.43, glucose 104, calcium 9.0. Impression And Plan: 1. End-stage renal disease. Volemia and electrolytes in good control. The patient will have dialysis tomorrow. 2. Lower extremity nonhealing wound. Debridement is scheduled for today. Continue antibiotics of broad spectrum. 3. Hypertension. Blood pressure control. The patient is on blood pressure medication. 4. Renal osteodystrophy. Continue renal diet and binders. 5. Anemia and chronic kidney disease. Hemoglobin level satisfactory. Reevaluate hemoglobin. Adjust medication as needed. MICHELLE/BEATRIZ Voice ID: [id number] Report ID: [id number] CHARLI
[2018-01-13] MEDS: SEVELAMER CARBONATE 800 MG TABLET PO SCH ×3 (08:03→16:57)
[2018-01-13] MEDS: INSULIN DETEMIR 100 UNIT/1 ML INSULIN SQ SCH ×2 (08:04→21:16)
[2018-01-13] MEDS: PANTOPRAZOLE 40MG TABLET PO SCH (08:05)
[2018-01-13] MEDS: NIFEDIPINE XL 30 MG TABLET PO SCH (08:23)
[2018-01-13] MEDS: ENOXAPARIN 30 MG/0.3 ML SQ SCH (09:08)
[2018-01-13] MEDS: VANCOMYCIN 500 MG in NA CHLORIDE 0.9% 100 ML IVPB SCH (12:42)
[2018-01-13] MEDS: Levofloxacin 250mg IV 250 MG/50 ML BAG IV SCH (14:14)
[2018-01-13] MEDS: MULTIVITAMINS,THERAPEUT 1 TAB PO SCH (14:14)
--- NOTE | 2018-01-13 15:51 | OP ---
Date of Procedure: 01/13/2018 Surgeon: Eduardo Lowery MD Preoperative Diagnoses: Right foot infected, diabetic ulcer with necrotic tissue. Postoperative Diagnoses: Right foot infected, diabetic ulcer with necrotic tissue. Procedure: Excisional debridement down to subcu of a right foot necrotic infected diabetic ulcer, ab out 8 x 7 cm. Anesthesia: Adjust medication p.o. since patient has neuropathy in that area. Indications For Surgery: This is the case of a female, who comes to us with cellulitis of the right foot region. Right ulcer there is not new. She has been seen before apparently by the senior mechanical engineer. He has been trying to control that. She is not using the proper shoes even though she claims she was advised to do so, and she is unable to put in a lot of pressure in that area. She has some other co nditions that took her to the hospital, medical disease including renal failure, on hemodialysis, con gestive heart failure, diabetes. A surgical consult was obtained for evaluation of an ulcer, since t he patient has necrotic tissue with cellulitis. The benefits, alternatives, and risks of debridement have been fully explained to the patient, which include but are not limited to infection, bleeding, damage to adjacent structures, anesthesia complication, nonhealing of the wound, [place], and even . She also understands this may not relieve any symptoms. She might need more than one surgical inter vention. Description Of Procedure: The patient's right foot was prepped and draped in usual sterile fashion. After that, using an 11-blade, we proceeded to subcutaneous debridement over the area. Necrotic tis constance was removed. The area was irrigated. Hemostasis obtained, and the area was packed with Santyl w et-to-dry. The patient tolerated the procedure well. Recommendation: For in this patient, continue Santyl wet-to-dry daily, off-loading, [facility] if she gets discharged, diabetes control, and she was counseled abo ut all those. TANMAY/BEATRIZ Voice ID: [id number] Report ID: [id number]
--- NOTE | 2018-01-13 16:22 | PN ---
The patient's foot looks better. There is less redness. There is no active drainage. The patient m ay need some debridement, but however, Dr. Lowery has not seen her yet today. The patient felicia hernandez will be continued on the same antibiotics. Her blood culture positive for Staph, but very likely i t is contamination. ABBY/BEATRIZ Voice ID: [id number] Report ID: [id number]
[2018-01-13] MEDS: GABAPENTIN 100 MG CAP PO SCH (21:15)
[2018-01-13] MEDS: TRAZODONE 50 MG TABLET PO SCH (21:15)
--- NOTE | 2018-01-13 22:28 | PN ---
Date of Progress Note: 01/13/2018 Chief Complaint: End-stage renal disease. Subjective: The patient is undergoing dialysis today. She was evaluated by a surgical team for debridement of the lower extremity. She was found to have positive blood culture with Staphylococcus and final report is pending. Today, she underwent debridement of the foot to control necrotic infected diabetic ulcer. Review of Systems: Denies fever or chills. Physical Examination: Lungs: Clear to auscultation bilaterally. Heart: S1, S2. Abdomen: Soft, benign. Extremities: Dressing in place. Laboratory Data: Hemoglobin 10.6, WBC 9.3, and platelet count 174,000. Chemistries showed sodium 140, potassium 4.3, chloride 101, CO2 of 30. BUN 38, creatinine 6.43, glucose 104. Impression And Plan: 1. End-stage renal disease. Monitor electrolytes. 2. The patient had dialysis done with ultrafiltration. Continue low-sodium diet and p.o. fluid restriction to prevent fluid overload. 3. Hypertension. Blood pressure controlled. Continue medication. 4. Renal osteodystrophy. Continue renal diet and binders. 5. Bacteremia. Continue antibiotics according to sensitivity panel. The patient had debridement of diabetic foot infection with ulcer. MICHELLE/MODAlena Voice ID: [id number] Report ID: [id number] CHARLI
[2018-01-14] MEDS: INSULIN DETEMIR 100 UNIT/1 ML INSULIN SQ SCH ×2 (08:19→20:42)
[2018-01-14] MEDS: SEVELAMER CARBONATE 800 MG TABLET PO SCH ×3 (08:19→16:41)
[2018-01-14] MEDS: ENOXAPARIN 30 MG/0.3 ML SQ SCH (08:19)
[2018-01-14] MEDS: PANTOPRAZOLE 40MG TABLET PO SCH (08:19)
[2018-01-14] MEDS: NIFEDIPINE XL 30 MG TABLET PO SCH (08:20)
[2018-01-14] MEDS: COLLAGENASE 30 GM OINTMENT TOP SCH (08:21)
[2018-01-14] MEDS: Levofloxacin 250mg IV 250 MG/50 ML BAG IV SCH (13:00)
[2018-01-14] MEDS: MULTIVITAMINS,THERAPEUT 1 TAB PO SCH (13:05)
[2018-01-14] MEDS: levoFLOXacin 250 MG TAB PO SCH (14:59)
--- NOTE | 2018-01-14 19:29 | PN ---
Date of Progress Note: 01/14/2018 Chief Complaint: End-stage renal disease, on dialysis. History Of Present Illness: The patient received dialysis yesterday. The patient presented to the hospital because of nonhealing lower extremity diabetic ulcer. She underwent debridement to control necrotic infected diabetic ulcer. Review of Systems: Denies fever, chills. Physical Examination: Lungs: Clear to auscultation bilaterally. Heart: S1, S2. Abdomen: Soft, benign. Extremities: Dressing in place. Laboratory Data: Hemoglobin 10.6, WBC 9.3, platelet count is 174,000. Blood glucose 129, sodium 140, potassium 4.3, chloride 101, CO2 30, BUN 38, creatinine 6.43, glucose 104, calcium 9.0. Impression And Plan: 1. End-stage renal disease. The patient will continue dialysis 3 times per week, she underwent dialysis yesterday. 2. Status post debridement of the nonhealing lower extremity wound. Continue antibiotics and wound care. 3. Hypertension. Blood pressure controlled. 4. Hypoalbuminemia. Continue high-protein intake. 5. Renal osteodystrophy. Continue renal diet and binders. MICHELLE/MODAlena Voice ID: [id number] Report ID: [id number]
[2018-01-14] MEDS: TRAZODONE 50 MG TABLET PO SCH (20:42)
[2018-01-14] MEDS: GABAPENTIN 100 MG CAP PO SCH (20:42)
[2018-01-15 05:05] LABS: Absolute Lymphocytes (CBC) 2.2 K/uL (0.7-4.9); Absolute Monocytes 0.6 K/uL (0.1-1.3); Basophils % 0.5 % (0-1.3); Hematocrit 31.6 % (36.0-45.0); Lymphocytes % 27.2 % (15.3-44.8); MCH 34.3 pg (27.0-35.0); MCV 100.3 fL (80-100); Monocytes % 7.8 % (3.3-12.3); RBC Red Blood Cell Count 3.15 M/uL (3.86-4.86)
[2018-01-15 05:28] VITALS: BMI 27.1
[2018-01-15 05:43] LABS: Potassium 4.5 mEq/L (3.6-5.0)
[2018-01-15 08:08] VITALS: O2SAT 100
[2018-01-15] MEDS: INSULIN DETEMIR 100 UNIT/1 ML INSULIN SQ SCH (09:00)
[2018-01-15] MEDS: COLLAGENASE 30 GM OINTMENT TOP SCH (09:00)
[2018-01-15] MEDS: ENOXAPARIN 30 MG/0.3 ML SQ SCH (09:15)
[2018-01-15] MEDS: SEVELAMER CARBONATE 800 MG TABLET PO SCH ×2 (09:15→12:00)
[2018-01-15] MEDS: PANTOPRAZOLE 40MG TABLET PO SCH (09:15)
[2018-01-15] MEDS: levoFLOXacin 250 MG TAB PO SCH (09:15)
[2018-01-15] MEDS: NIFEDIPINE XL 30 MG TABLET PO SCH (09:16)
[2018-01-15] MEDS: MULTIVITAMINS,THERAPEUT 1 TAB PO SCH (12:00)
[2018-01-15] MEDS: VANCOMYCIN 500 MG in NA CHLORIDE 0.9% 100 ML IVPB SCH (13:36)
[2018-01-15 15:00] VITALS: BP 163/78; TEMP 97.8
--- NOTE | 2018-01-16 02:42 | PN ---
Date of Progress Note: 01/15/2018 Chief Complaint: End-stage renal disease, on dialysis. History Of Present Illness: The patient is scheduled to have dialysis today. The patient underwent debridement of the lower extremity nonhealing wound. The patient developed diabetic foot infection. She is on antibiotics. Review of Systems: Denies fever, chills. Physical Examination: Lungs: Clear to auscultation bilaterally. Heart: S1-S2. Abdomen: Soft, benign. Extremities: Dressing in place. No edema. Impression: 1.End-stage renal disease. Continue dialysis 3 times per week. The patient is scheduled to have di alysis today with ultrafiltration. 2.Status post debridement for nonhealing lower extremity wound. Continue antibiotics and wound care . 3.Hypertension. Blood pressure control. Continue medication. 4.Hypoalbuminemia. The patient is improving, p.o. intake is improving, monitor albumin level. 5.Renal osteodystrophy. Continue renal diet and binders. EB/MODL Voice ID: [id number] Report ID: [id number]
[2018-01-16 05:16] LABS: HBsAG Nonreactive (Nonreactive)
--- NOTE | 2018-03-11 19:08 | DS ---
Date of Discharge: 01/15/2018 Final Diagnoses: 1.Cellulitis, right foot. 2.Type 2 diabetes, requiring insulin. 3.End-stage renal disease, on dialysis. 4.Diabetic retinopathy with legal blindness. 5.Diabetic neuropathy. Hospital Course: This patient was being treated by Dr. To for cellulitis. The patient had neurop athy as well as diabetes. As there was no improvement, she was sent to emergency room from where she was admitted to floor. After admission to the hospital, the patient was started on vancomycin and L evaquin. Dr. Lowery, a surgeon and Dr. Julian, vpk teacher were consulted. The patient after s tarting the antibiotic had debridement of the foot and necrotic tissue by Dr. Lowery. The patient was continued on dialysis. There was improvement at the time of discharge. As she was afebrile, she was discharged to have outpatient followup. Laboratory Data: Please refer to the chart. ABBY/BEATRIZ Voice ID: [id number] Report ID: [id number]
== END 2018-01-15 16:04 | disposition home or self-care (01) | DRG 623 ==
LOC: ER 17:32 → ERHOLD 21:32 → 2ND 21:36
PROVIDERS: ADMIT Internal Medicine; ATTEND Internal Medicine
PROC: 5A1D70Z Performance of Urinary Filtration, Intermittent, Less than 6 Hours Per Day (ICD-10-PCS; 2018-01-11)
PROC: 0JBQ0ZZ Excision of Right Foot Subcutaneous Tissue and Fascia, Open Approach (ICD-10-PCS; principal; 2018-01-13)
DX: E11.621 Type 2 diabetes mellitus with foot ulcer (principal); L03.115 Cellulitis of right lower limb; I13.2 Hypertensive heart and chronic kidney disease with heart failure and with stage 5 chronic kidney disease, or end stage renal disease; E11.22 Type 2 diabetes mellitus with diabetic chronic kidney disease; N18.6 End stage renal disease; Z99.2 Dependence on renal dialysis; E88.09 Other disorders of plasma-protein metabolism, not elsewhere classified; N25.0 Renal osteodystrophy; L97.511 Non-pressure chronic ulcer of other part of right foot limited to breakdown of skin; D63.1 Anemia in chronic kidney disease; E11.21 Type 2 diabetes mellitus with diabetic nephropathy; E11.40 Type 2 diabetes mellitus with diabetic neuropathy, unspecified; E11.319 Type 2 diabetes mellitus with unspecified diabetic retinopathy without macular edema; Z79.4 Long term (current) use of insulin; I50.9 Heart failure, unspecified; H54.8 Legal blindness, as defined in USA; N25.81 Secondary hyperparathyroidism of renal origin
CPT/HCPCS: 36415; 80048; 80076; 80202; 82550; 82553; 82962; 83605; 84145; 85025; 85610; 85652; 85730; 86140; 86317; 86704; 86706; 86803; 87040; 87070; 87077; 87186; 87205; 87340; 90935; 93005; 96365; 96375; 99285; J1650; J3370; J3590; Q4081